=== PATIENT | female | born 1930 | race Caucasian/White ===

== ENCOUNTER 2017-06-16 18:47 | Emergency (ER) | payer MEDICARE, MEDICAID ==
[~2017-06-16] VITALS: Ht 152.4 cm; Wt 59.0 kg
--- NOTE | 2017-06-16 19:14 | NUR ---
BIB [facility] C/O HEAD LAC AND L HIP PAIN S/P SYNCOPAL EPISODE. PLACED ON MONITOR AWAITING MD ORDER. APPLIED PRESSURE TO HEAD LAC APPLIED DRY DRESSING
--- NOTE | 2017-06-16 19:15 | NUR ---
REPORT GIVEN TO ED FOR COLETTE
--- NOTE | 2017-06-16 19:20 | NUR ---
F/C INSERTED BY ICU CLERKCHRISTA MAE. URINE SAMPLE COLLECTED AND SENT TO LAB.
--- NOTE | 2017-06-16 19:21 | NUR ---
ASSUMED CARE. RECEIVE REPORT FROM AM SHIFT RN JAZMINE. PT [id number]. PT RESTING QUIETLY, NO ACUTE DISTRESS NOTED, RESP EVEN AND UNLABORED. PT C/O HEADACHE AND L HIP PAIN AT THIS TIME. ER MD AWARE.
[2017-06-16 19:31] LABS: BASOPHILS # (AUTO) 0.3 /CMM (0.0-0.2); BASOPHILS % (AUTO) 1.2 % (0.0-2.0); EOSINOPHILS % (AUTO) 4.4 % (0.0-6.0); HEMATOCRIT 52 % (33-45); HEMOGLOBIN 17.3 g/dL (11.5-14.8); LYMPHOCYTES # (AUTO) 2.5 /CMM (0.8-4.8); LYMPHOCYTES % (AUTO) 10.5 % (20.0-44.0); MEAN CORPUSCULAR HGB CONC 34 g/dl (31.0-36.0); MEAN CORPUSCULAR VOLUME 80 fL (82-100); MONOCYTES # (AUTO) 0.2 /CMM (0.1-1.30); MONOCYTES % (AUTO) 0.8 % (2.0-12.0); NEUTROPHILS # (AUTO) 19.4 /CMM (1.8-8.9); NEUTROPHILS % (AUTO) 83.1 % (43.0-81.0); PLATELET COUNT (AUTO) 629 /CMM (150-450); RDW COEFFICIENT OF VARIATION 21.1 (11.5-15.0); RED BLOOD CELL COUNT(AUTO) 6.45 MIL/uL (4.0-5.2); WHITE BLOOD COUNT (AUTO) 23.4 K/uL (4.3-11.0)
[2017-06-16] MEDS ORDERED: ONDANSETRON HCL/PF 4 MG/2 ML VIAL ONE ×2 (19:32→20:38)
[2017-06-16] MEDS ORDERED: MORPHINE SULFATE INJ 4 MG/ML DISP.SYRIN ONE (19:32)
--- NOTE | 2017-06-16 19:32 | NUR ---
PT MEDICATED BY RN PER ER MD ORDER.
--- NOTE | 2017-06-16 19:38 | NUR ---
PT TRANSPORTED TO RADIOLOGY FOR CT HEAD.
[2017-06-16 19:47] LABS: ALANINE AMINOTRANSFERASE 29 U/L (12-78); ALBUMIN 3.8 g/dL (3.4-5.0); ALKALINE PHOSPHATASE 129 U/L (46-116); ASPARTATE AMINOTRANSFERASE 34 U/L (15-37); BILIRUBIN,DIRECT 0.1 mg/dL (0.0-0.2); BILIRUBIN,TOTAL 0.6 mg/dL (0.2-1.0); CALCIUM, SERUM 9.2 mg/dL (8.5-10.1); CARBON DIOXIDE 23 mmol/L (21-32); CHLORIDE 102 mmol/L (98-107); CREATININE 1.2 mg/dL (0.6-1.3); GLUCOSE 138 mg/dL (74-106); POTASSIUM 3.7 mmol/L (3.5-5.1); SODIUM SERUM 137 mmol/L (136-145); TOTAL PROTEIN, SERUM 8.9 g/dL (6.4-8.2); UREA NITROGEN, BLOOD 36 mg/dL (7-18)
[2017-06-16 19:48] LABS: TROPONIN I < 0.017 ng/mL (0.00-0.056)
--- NOTE | 2017-06-16 19:53 | NUR ---
DR GARCIA WAS CALLED TO SPEAK TO
--- NOTE | 2017-06-16 19:53 | NUR ---
SHAUNNA GRAHAM TALKING TO DR. GARCIA REGARDING PT CT HEAD RESULTS.
--- NOTE | 2017-06-16 19:56 | NUR ---
PT BACK FROM RADIOLOGY. ER KAROL ROBERSON AT BEDSIDE FOR LACERATION REPAIR.
[2017-06-16] MEDS ORDERED: MORPHINE SULFATE INJ 2 MG/ML DISP.SYRIN IV ONE (20:00)
[2017-06-16] MEDS ORDERED: ONDANSETRON HCL/PF - ER 4 MG/2 ML VIAL IV ONE ×2 (20:00→21:00)
--- NOTE | 2017-06-16 20:19 | NUR ---
LACERATION REPAIR DONE BY SHAUNNA CROWE. PT TOLERATED PROCEDURE WELL.
[2017-06-16] MEDS ORDERED: METOCLOPRAMIDE HCL 10 MG/2 ML VIAL ONE (21:05)
--- NOTE | 2017-06-16 21:09 | NUR ---
REINALDO FROM [facility] CALLED TO INFORM THAT THE PT WILL BE GOING TO ICU BED #4519-1. PHONE NUMBER FOR REPORT IS [phone] [phone].
--- NOTE | 2017-06-16 21:15 | NUR ---
CALLED [facility] AND SPOKE WITH THEIR DISPATCHER TO SET UP A CODE 3 TRANSPORT TO [facility]. THE RESIDENT CREW WAS ON SCENE AND THEY ARE NOW AT PT BEDSIDE. TRIP#: [id number]
--- NOTE | 2017-06-16 21:25 | NUR ---
REPORT CALLED TO [facility]. [facility] AT BEDSIDE.
[2017-06-16 21:26] VITALS: BP 156/86
[2017-06-16] MEDS ORDERED: METOCLOPRAMIDE HCL 10 MG/2 ML VIAL IV ONE (21:30)
== END 2017-06-16 21:41 | disposition short-term general hospital (02) ==
LOC: ER 18:50
DX: S06.5X9A Traumatic subdural hemorrhage with loss of consciousness of unspecified duration, initial encounter (principal); S72.012A Unspecified intracapsular fracture of left femur, initial encounter for closed fracture; R55 Syncope and collapse; I70.0 Atherosclerosis of aorta; M48.02 Spinal stenosis, cervical region; Z60.2 Problems related to living alone; W01.198A Fall on same level from slipping, tripping and stumbling with subsequent striking against other object, initial encounter; Y93.89 Activity, other specified; Y92.481 Parking lot as the place of occurrence of the external cause; Y99.8 Other external cause status
CPT/HCPCS: 36415; 70450-TC; 71045-TC; 72125-TC; 72170-TC; 80048-TC; 80076-TC; 84484-TC; 85025-TC; 85730-TC; 86850-TC; A4606; A6402; A6403; J2270; J2405; J2765; Z7610